=== PATIENT | female | born 1955 | race Hispanic/Latino ===

== ENCOUNTER → 2022-07-15 | Outpatient (CLI) | payer OTHER ==
[2022-07-15 16:37] LABS: CREATININE 0.7 mg/dL (0.5-1.5); POTASSIUM 4.9 mmol/L (3.5-5.1)
== END | disposition home or self-care (01) ==
LOC: LAB 11:10
PROVIDERS: ATTEND Student in an Organized Health Care Education/Training Program
DX: R07.9 Chest pain, unspecified (principal)
CPT/HCPCS: 36415; 80048

== ENCOUNTER → 2022-08-02 | Outpatient (CLI) | payer OTHER | END | disposition home or self-care (01) | LOC: SHCH 09:25 | PROVIDERS: ATTEND Student in an Organized Health Care Education/Training Program | DX: I51.7 Cardiomegaly (principal); R07.9 Chest pain, unspecified; E78.5 Hyperlipidemia, unspecified | CPT/HCPCS: 93306 ==

== ENCOUNTER → 2022-08-03 | Outpatient (CLI) | payer OTHER ==
[2022-08-03 16:38] LABS: ALBUMIN 3.9 g/dL (3.5-5.0); CREATININE 0.7 mg/dL (0.5-1.5); POTASSIUM 4.7 mmol/L (3.5-5.1); TOTAL PROTEIN, SERUM 7.4 g/dL (6.0-8.3)
== END | disposition home or self-care (01) ==
LOC: LAB 12:45
PROVIDERS: ATTEND Student in an Organized Health Care Education/Training Program
DX: R07.9 Chest pain, unspecified (principal)
CPT/HCPCS: 36415; 80053

== ENCOUNTER → 2023-05-02 | Outpatient (CLI) | payer OTHER ==
[2023-05-02 12:15] LABS: CHOLESTEROL 183 mg/dL (<200); HDL CHOLESTEROL 90 mg/dL (35-85); LDL DIRECT 82 mg/dL (0-99); TRIGLYCERIDES 47 mg/dL (30-200)
== END | disposition home or self-care (01) ==
LOC: LAB 09:11
PROVIDERS: ATTEND Student in an Organized Health Care Education/Training Program
DX: E78.5 Hyperlipidemia, unspecified (principal)
CPT/HCPCS: 36415; 80061

== ENCOUNTER 2024-05-25 05:44 | Day surgery (SDC) | payer OTHER ==
--- NOTE | 2024-05-21 10:05 | EKG ---
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
[2024-05-21 10:15] VITALS: BP 141/66; PULSE 61; RESP 18; TEMP 97.5
[2024-05-21 10:29] LABS: INR <= 0.93 (0.85-1.15); PROTHROMBIN TIME 10.2 SEC (9.6-11.6)
[2024-05-21 10:30] LABS: PARTIAL THROMBOPLASTIN TIME 28.6 SEC (26.3-35.5)
[~2024-05-25] VITALS: Ht 152.4 cm; Wt 76.3 kg
[2024-05-25] VITALS (16 sets, daily range): BP systolic 116–143; BP diastolic 51–83; PULSE 55–92; RESP 13–20; TEMP 97.3–98
[~2024-05-25 05:44] MED LIST: CALCIUM PO; LEVO88TA7 PO; SIMV-46 PO; VIT B12 PO; VIT E PO; [UNRECOGNIZED DRUG - REMARK] PO
[2024-05-25] MEDS ORDERED: LIDOCAINE HCL MPF 1% 5ML VIAL ONE (06:43)
[2024-05-25] MEDS ORDERED: MIDAZOLAM HCL 1 MG/ML 2ML VIAL ONE (06:43)
[2024-05-25] MEDS ORDERED: FENTanyl CITRate PF 50 MCG/1 ML 2ML VIAL ONE (06:44)
[2024-05-25] MEDS ORDERED: proPOFol 10 MG/ML 20ML VIAL IV ONE (06:44)
[2024-05-25] MEDS ORDERED: rocuRONium bROMide 10MG/1ML 5ML VL ONE (06:44)
[2024-05-25] MEDS ORDERED: phenylEPHRINE HCL 10 MG/ML 1ML VIAL IV ONE (06:47)
[2024-05-25] MEDS ORDERED: ondanSETRON 4MG INJ ONE (06:48)
[2024-05-25] MEDS: ceFAZolin SODIUM 2 GM VIAL ONE (07:15)
[2024-05-25] MEDS: BUPIvacaine/PF 0.25% 30ML VIAL IJ ONE (07:37)
[2024-05-25] MEDS ORDERED: NEOSTIGMINE METHYLSULFATE 1MG/ML IV ONE (07:44)
[2024-05-25] MEDS ORDERED: GLYCOPYRROLATE 0.2 MG/ML 5 ML VIAL ONE (07:44)
[2024-05-25] MEDS ORDERED: ACET-2079 PO (08:00)
--- NOTE | 2024-05-25 08:38 | OP ---
Operative Note: DATE OF PROCEDURE: 05/25/24 SURGEON: RAMOS GENTILE MD BOTTOM BLEACHER: Katia Mixon ANESTHESIA: General ANESTHESIOLOGIST/WEBBING TACKER: Jay Pak PREOPERATIVE DIAGNOSIS: Right carpal tunnel syndrome and right middle finger trigger finger POSTOPERATIVE DIAGNOSIS: Right carpal tunnel syndrome and right middle finger trigger finger PROCEDURE: Right carpal tunnel release and right middle finger trigger finger release ESTIMATED BLOOD LOSS: None INDICATIONS: 69-year-old female with EMG evidence of median nerve compression of the carpal tunnel and middle finger trigger finger. Patient has locking and clicking of the finger with range of motion that has become debilitating. After discussion of the risk, benefits, and alternatives, the patient voluntarily agreed to undergo the aforementioned procedure. DESCRIPTION OF PROCEDURE: Patient was properly identified in the preoperative holding area. Surgical site marking was verified and surgery consent reviewed. The patient was then taken to the operating room and placed in supine position on the OR table. After induction of general anesthesia, preoperative antibiotics were given, all bony prominences were well-padded, and a well padded tourniquet was applied but not inflated at this time. The right upper extremity was then prepped and draped in usual sterile fashion. Surgical time out was done verif gisselle correct surgery, side, site, and location to be performed. We then began the procedure by exsanguinating the arm using an Esmarch and inflating a tourniquet to 250 mmHg. We elected to address the carpal tunnel 1st. We made an approximately 2 cm long incision at the ulnar border of the fourth digit, when flexed, on the midpalmar longitudinal crease. Here we came down sharply through the subcutaneous tissue and using a self retaining retractor as well as ragnelles we could visualize the deep tissue. We then identified the transverse carpal ligament and began to come through this a little bit at a time using a 15 blade with small amounts of pressure being applied. The ligament was then released. We directed our attention proximally where we spread above and below the remaining portion of the transverse carpal ligament to break up any adhesions and using a pair of Metzenbaum scissors we slid proximally and transected and the remaining proximal portion of the transverse carpal ligament. Distally, we placed our retractors to help a show the distal extent of the transverse carpal ligament, and we came through this carefully using a 15 blade until we identified the fat surrounding the palmar arch. We used a Schoenchen elevator palpating both the proximal and distal directions to ensure the entire transverse carpal ligament had been released. We then redirected our attention to the trigger finger. We made an approximately 1 cm long incision at the level of the A1 xavi on the volar aspect of the metacarpal head for the middle finger. Here we came down sharply through the subcutaneous tissue and identified the A1 xavi. We then began to come through this a little bit at a time using a 15 blade with small amounts of pressure being applied. The xavi was then are not released. We then checked proximally and distally with a freer elevator to ensure we had full release. The tendons were then delivered into the wound using abdominal and the center retractor. There was no significant pathologic tissue noted on the tendons. We then thoroughly irrigated out the wounds with normal saline and injected the surrounding tissue with Marcaine. The wounds were then closed with 3-0 nylon interrupted simple suture pattern. Soft sterile dressing was applied with Xeroform, 4 x 4's, and Coban. The tourniquet was then deflated. The patient was then awakened from anesthesia and taken to the recovery in stable condition. RAMOS GENTILE MD May 25, 2024 08:38
[2024-05-25] MEDS: ketOROlac 30MG VIAL (30MG/ML) ONE (08:41)
[2024-05-25] MEDS: LACTATED RINGERS 1000ML 1,000 ML IV ONE (09:01)
--- NOTE | 2024-05-25 09:42 | NUR ---
Patient aox4. Denies c/o pain or discomfort. Voiced understanding to CTR procedure precautions and follow up expectations. Neurovascularly intact. Ambulated to bathroom and Voided large amount of clear urine. PIV discontinued with catheter tip intact. Full and complete Discharge instructions given to Patient and Family. All questions answered. W/C to POV with Family to Home.
== END 2024-05-25 09:45 | disposition home or self-care (01) ==
LOC: DAH 05:44
PROVIDERS: ATTEND Student in an Organized Health Care Education/Training Program
DX: G56.01 Carpal tunnel syndrome, right upper limb (principal); M65.331 Trigger finger, right middle finger; E78.5 Hyperlipidemia, unspecified; E03.9 Hypothyroidism, unspecified; M06.9 Rheumatoid arthritis, unspecified; Z79.890 Hormone replacement therapy; Z79.01 Long term (current) use of anticoagulants; Z83.3 Family history of diabetes mellitus; Z82.49 Family history of ischemic heart disease and other diseases of the circulatory system; Z88.0 Allergy status to penicillin; Z79.899 Other long term (current) drug therapy; Z98.890 Other specified postprocedural states
CPT/HCPCS: 26055; 64721; 85610; 85730; 36415; 93005; A4223 ×2; A4663; A4649 ×2; J7120; J3010; J0665; J3490 ×3; J2250; J2704; J2405; J1885; J2710; J2371; J0690; A6223; A4215; A4213; A4222; A4221; A4216